=== PATIENT | female | born 2000 | race Two or more races ===

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

== ENCOUNTER 2020-12-29 21:00 | Emergency (ER) | payer SELFPAY ==
[~2020-12-29] VITALS: Ht 152.4 cm; Wt 53.0 kg
[2020-12-30 03:23] LABS: CLARITY URINE CLOUDY (CLEAR); COLOR URINE YELLOW (YELLOW); KETONES URINE NEGATIVE (NEGATIVE); LEUKOCYTE ESTERASE URINE 2+ (NEGATIVE); NITRITE URINE NEGATIVE (NEGATIVE); OCCULT BLOOD URINE NEGATIVE (NEGATIVE); PROTEIN URINE TRACE (NEGATIVE); SPECIFIC GRAVITY URINE 1.033 (1.005-1.030)
[2020-12-30] MEDS ORDERED: NITR-87 MT (04:54)
[2020-12-30 05:00] VITALS: BP 104/67
== END 2020-12-30 05:00 | disposition home or self-care (01) ==
LOC: ER 21:00
DX: N76.0 Acute vaginitis (principal)
CPT/HCPCS: 81003; 81025; 87086; 87210; 99283; Z7610